=== PATIENT | female | born 1955 | race African-American/Black ===

== ENCOUNTER 2021-05-03 07:41 | Inpatient (IN) | payer MEDICARE ==
[~2021-05-03] VITALS: Ht 162.6 cm; Wt 73.5 kg
[2021-05-03] VITALS (15 sets, daily range): BP systolic 114–152; BP diastolic 30–99
[2021-05-03] MEDS ORDERED: SODIUM CHLORIDE 0.9% 1000ML 1,000 ML IV STA (07:49)
[2021-05-03] MEDS ORDERED: ONDANSETRON HCL INJ 2MG/ML 2ML 2 MG/ML VIAL IV STA (07:49)
[2021-05-03 08:02] LABS: BASOPHILS # (AUTO) 0.1 (0.0-0.1); BASOPHILS % 0.7 % (0.0-1.0); EOSINOPHILS # (AUTO) 0.4 (0.0-0.4); EOSINOPHILS % 5.1 % (0.0-6.0); HEMOGLOBIN 14.1 g/dL (12.0-16.0); LYMPHOCYTES # (AUTO) 5.3 (1.0-3.2); MEAN CORPUSCULAR HEMOGLOBIN 30.9 pg (28-32); MEAN CORPUSCULAR HGB CONC 32.8 g/dL (31-35); MEAN CORPUSCULAR VOLUME 94.1 fL (81-99); MONOCYTES # (AUTO) 0.4 (0.2-0.8); NEUTROPHILS # (AUTO) 2.2 (2.1-6.9); PLATELET COUNT 204 x10e3/uL (140-360); RED BLOOD COUNT 4.57 x10e6/uL (3.6-5.1); RED CELL DISTRIBUTION WIDTH 14.7 % (11.7-14.4)
[2021-05-03] MEDS ORDERED: ASPIRIN 81 MG CHEW TAB PO ONE (08:15)
[2021-05-03 08:17] LABS: INR 0.91; PROTHROMBIN TIME 12.6 seconds (11.9-14.5)
[2021-05-03 08:18] LABS: PARTIAL THROMBOPLASTIN TIME 24.2 seconds (23.8-35.5)
[2021-05-03 08:41] LABS: EOSINOPHILS % (MANUAL) 3 % (0-7); LYMPHOCYTES % (MANUAL) 71 % (19-48); MONOCYTES % (MANUAL) 6 % (3.4-9.0); NEUTROPHILS % (MANUAL) 20 % (40-74); PLATELET ESTIMATE ADEQUATE; PLATELET MORPHOLOGY COMMENT NORMAL; RBC MORPHOLOGY COMMENT NORMAL
[2021-05-03] MEDS ORDERED: DEXTROSE 50% SYRINGE 50 ML IV PRN (09:30)
[2021-05-03 09:33] LABS: ALBUMIN 3.5 g/dL (3.5-5.0); ALBUMIN/GLOBULIN RATIO 1.5 (0.8-2.0); ANION GAP 14.9 mmol/L (8-16); CALCIUM 8.5 mg/dL (8.4-10.2); CREATININE, SERUM 0.93 mg/dL (0.57-1.11); MAGNESIUM 2.2 MG/DL (1.3-2.1); POTASSIUM 4.9 mmol/L (3.5-5.1)
[2021-05-03 09:40] LABS: CREATINE KINASE MB 4.9 ng/mL (0-5.0)
[2021-05-03] MEDS: INSULIN LISPRO 100 UNIT/1 ML 3ML VIAL SQ SCH ×3 (11:30→20:54)
[2021-05-03 14:35] LABS: CREATINE KINASE MB 15.7 ng/mL (0-5.0)
[2021-05-03] MEDS: FAMOTIDINE 20 MG/2 ML VIAL IV SCH (20:54)
[2021-05-03] MEDS: ENOXAPARIN SODIUM INJ 100 MG/ML SYR SC SCH (20:54)
[2021-05-04] VITALS (18 sets, daily range): BP systolic 115–154; BP diastolic 60–98
[2021-05-04 02:39] LABS: CREATINE KINASE MB 11.3 ng/mL (0-5.0)
[2021-05-04] MEDS ORDERED: CLONIDINE HCL0.2 MG PO (03:54)
[2021-05-04] MEDS ORDERED: LOSARTAN POTASS25 MG PO (03:54)
[2021-05-04] MEDS ORDERED: NIFEDIPINE ER30 M1 PO (03:54)
[2021-05-04 05:49] LABS: BASOPHILS % 0.6 % (0.0-1.0); EOSINOPHILS # (AUTO) 0.3 (0.0-0.4); EOSINOPHILS % 4.5 % (0.0-6.0); HEMATOCRIT 39.1 % (34.2-44.1); HEMOGLOBIN 13.1 g/dL (12.0-16.0); LYMPHOCYTES # (AUTO) 3.4 (1.0-3.2); LYMPHOCYTES % 52.3 % (18.0-39.1); MEAN CORPUSCULAR HEMOGLOBIN 30.5 pg (28-32); MEAN CORPUSCULAR HGB CONC 33.5 g/dL (31-35); MEAN CORPUSCULAR VOLUME 91.1 fL (81-99); MONOCYTES # (AUTO) 0.5 (0.2-0.8); MONOCYTES % 8.3 % (4.4-11.3); NEUTROPHILS # (AUTO) 2.2 (2.1-6.9); PLATELET COUNT 189 x10e3/uL (140-360); RED BLOOD COUNT 4.29 x10e6/uL (3.6-5.1); RED CELL DISTRIBUTION WIDTH 14.6 % (11.7-14.4)
[2021-05-04] MEDS ORDERED: CLONIDINE HCL 0.2 MG TAB PO SCH (06:00)
[2021-05-04 06:13] LABS: CHOL/HDL RATIO 3.7 (3.0-3.6)
[2021-05-04 06:16] LABS: ALBUMIN 3.3 g/dL (3.5-5.0); ALBUMIN/GLOBULIN RATIO 1.4 (0.8-2.0); ANION GAP 12.7 mmol/L (8-16); CALCIUM 8.7 mg/dL (8.4-10.2); CHOL/HDL RATIO 3.7 (3.0-3.6); CREATININE, SERUM 0.83 mg/dL (0.57-1.11); POTASSIUM 3.7 mmol/L (3.5-5.1)
[2021-05-04 06:37] LABS: FREE THYROXINE INDEX 1.6274 (1.4-3.8); THYROID STIMULATING HORMONE 1.617 uIU/mL (0.350-4.940)
[2021-05-04] MEDS: INSULIN LISPRO 100 UNIT/1 ML 3ML VIAL SQ SCH ×4 (07:16→21:00)
[2021-05-04] MEDS: PANTOPRAZOLE SOD 40 MG TABEC PO SCH (08:02)
[2021-05-04] MEDS: FAMOTIDINE 20 MG/2 ML VIAL IV SCH ×2 (08:02→20:56)
[2021-05-04] MEDS: ENOXAPARIN SODIUM INJ 100 MG/ML SYR SC SCH ×2 (08:02→20:56)
[2021-05-04] MEDS: ASPIRIN 81 MG ENTERIC COATED PO SCH (08:02)
[2021-05-04 09:43] LABS: CREATINE KINASE MB 7.2 ng/mL (0-5.0)
[2021-05-04 14:48] LABS: CLARITY,URINE CLEAR (CLEAR); COLOR,URINE YELLOW (YELLOW); KETONES,URINE NEGATIVE (NEGATIVE); LEUKOCYTE ESTERASE ,URINE NEGATIVE (NEGATIVE); NITRITE,URINE NEGATIVE (NEGATIVE); PROTEIN,URINE DIPSTICK NEGATIVE (NEGATIVE); URINE UROBILINOGEN 0.2 mg/dL (0.2 - 1)
[2021-05-04 14:58] LABS: BACTERIA,URINE RARE /HPF; EPITHELIAL CELLS,URINE FEW /LPF; RBC,URINE 0-5 /HPF (0-5); WBC,URINE (MAN) 0-5 /HPF (0-5)
[2021-05-04] MEDS: ATORVASTATIN 10 MG TAB PO SCH (20:56)
[2021-05-04] MEDS ORDERED: MELATONIN 5 MG TABLET PO SCH (21:00)
[2021-05-04] MEDS: MELATONIN 5 MG TABLET PO SCH (21:05)
[2021-05-05] VITALS (8 sets, daily range): BP systolic 140–165; BP diastolic 73–84
[2021-05-05] MEDS: INSULIN LISPRO 100 UNIT/1 ML 3ML VIAL SQ SCH ×4 (07:30→21:00)
[2021-05-05] MEDS: PANTOPRAZOLE SOD 40 MG TABEC PO SCH (07:30)
[2021-05-05] MEDS: ASPIRIN 81 MG ENTERIC COATED PO SCH (09:00)
[2021-05-05] MEDS: ENOXAPARIN SODIUM INJ 100 MG/ML SYR SC SCH (09:00)
[2021-05-05] MEDS ORDERED: MIDAZOLAM HCL 2 MG/2 ML VIAL ONE (12:29)
[2021-05-05] MEDS ORDERED: FENTANYL CITRATE/PF 100MCG/2 ML INJ ONE (12:30)
[2021-05-05] MEDS ORDERED: LIDOCAINE HCL 2% LOCAL 20 ML VIAL ONE (12:30)
[2021-05-05] MEDS ORDERED: HEPARIN SOD/SOD CHLORIDE 2,000 ML ONE (12:30)
[2021-05-05] MEDS ORDERED: IOPAMIDOL 370 MG/ML 200 ML INFUS..BTL INJ ONE (12:30)
[2021-05-05] MEDS ORDERED: SODIUM CHLORIDE 0.9% 1000ML 1,000 ML ONE (12:30)
[2021-05-05] MEDS ORDERED: TICAGRELOR 90 MG TABLET ONE (13:04)
[2021-05-05] MEDS ORDERED: ASPIRIN 325 MG TAB ONE (13:04)
[2021-05-05] MEDS ORDERED: SODIUM CHLORIDE 0.9% 1000ML 1,000 ML IV SCH (13:15)
[2021-05-05] MEDS: FAMOTIDINE 20 MG TAB PO SCH (22:04)
[2021-05-05] MEDS: MELATONIN 5 MG TABLET PO SCH (22:04)
[2021-05-05] MEDS: ATORVASTATIN 10 MG TAB PO SCH (22:04)
[2021-05-06] VITALS: BP 176/77
[2021-05-06 04:00] VITALS: BP 157/79
[2021-05-06 07:28] VITALS: BP 141/71
[2021-05-06] MEDS: INSULIN LISPRO 100 UNIT/1 ML 3ML VIAL SQ SCH ×2 (07:30→11:30)
[2021-05-06 07:59] VITALS: BP 141/71
[2021-05-06] MEDS: FAMOTIDINE 20 MG TAB PO SCH (08:33)
[2021-05-06] MEDS: PANTOPRAZOLE SOD 40 MG TABEC PO SCH (08:33)
[2021-05-06] MEDS: ASPIRIN 81 MG ENTERIC COATED PO SCH (08:33)
[2021-05-06] MEDS ORDERED: CLOPIDOGREL BISULFATE 75 MG TAB PO SCH (09:00)
[2021-05-06] MEDS ORDERED: PLAVIX75 MG PO (11:03)
[2021-05-06] MEDS ORDERED: FAMOTIDINE20 MG PO (11:03)
[2021-05-06] MEDS ORDERED: ASPIRIN EC81 MG PO (11:03)
[2021-05-06] MEDS ORDERED: MELATONIN3 MG PO (11:04)
[2021-05-06 11:33] VITALS: BP 153/82
== END 2021-05-06 14:00 | disposition home or self-care (01) | DRG 247 ==
LOC: EDBD 07:41 → ER 08:00 → ERHOLD 09:29 → ICU 10:44 → MED/SURG 05-04 17:55
PROVIDERS: ADMIT Internal Medicine; ATTEND Internal Medicine
PROC: 027034Z Dilation of Coronary Artery, One Artery with Drug-eluting Intraluminal Device, Percutaneous Approach (ICD-10-PCS; principal; 2021-05-05)
PROC: 4A023N7 Measurement of Cardiac Sampling and Pressure, Left Heart, Percutaneous Approach (ICD-10-PCS; 2021-05-05)
PROC: B2111ZZ Fluoroscopy of Multiple Coronary Arteries using Low Osmolar Contrast (ICD-10-PCS; 2021-05-05)
PROC: B2151ZZ Fluoroscopy of Left Heart using Low Osmolar Contrast (ICD-10-PCS; 2021-05-05)
DX: I21.4 Non-ST elevation (NSTEMI) myocardial infarction (principal); W18.11XA Fall from or off toilet without subsequent striking against object, initial encounter; Y93.9 Activity, unspecified; Y92.002 Bathroom of unspecified non-institutional (private) residence as the place of occurrence of the external cause; E78.5 Hyperlipidemia, unspecified; E11.9 Type 2 diabetes mellitus without complications; I25.10 Atherosclerotic heart disease of native coronary artery without angina pectoris; Z20.822 Contact with and (suspected) exposure to COVID-19
CPT/HCPCS: 36415; 70450; 70551; 71045; 80053; 80061; 81001; 82550; 82553; 82948; 83036; 83090; 83735; 83880; 84436; 84443; 84479; 84484; 85025; 85610; 85730; 86039; 87086; 92928; 93005; 93306; 93454; 93880; 99152; 99153; 99284; C1725; C1760; C1769; C1874; C1894; J1650; J2001; J2250; J3010; J7030; Q9967; U0002

== ENCOUNTER 2021-05-20 12:16 | Inpatient (IN) | payer MEDICARE ==
[~2021-05-20] VITALS: Ht 162.6 cm; Wt 73.5 kg
[~2021-05-20 12:16] MED LIST: ASPIRIN EC81 MG PO; CLONIDINE HCL0.2 MG PO; FAMOTIDINE20 MG PO; LOSARTAN POTASS25 MG PO; MELATONIN3 MG PO; NIFEDIPINE ER30 M1 PO; PLAVIX75 MG PO
[2021-05-20 12:59] LABS: BASOPHILS # (AUTO) 0.1 (0.0-0.1); BASOPHILS % 0.8 % (0.0-1.0); EOSINOPHILS # (AUTO) 0.3 (0.0-0.4); HEMOGLOBIN 13.9 g/dL (12.0-16.0); LYMPHOCYTES % 34.3 % (18.0-39.1); MEAN CORPUSCULAR HEMOGLOBIN 30.5 pg (28-32); MEAN CORPUSCULAR HGB CONC 33.1 g/dL (31-35); MEAN CORPUSCULAR VOLUME 92.1 fL (81-99); MONOCYTES # (AUTO) 0.6 (0.2-0.8); MONOCYTES % 6.4 % (4.4-11.3); NEUTROPHILS # (AUTO) 4.9 (2.1-6.9); NEUTROPHILS % 55.3 % (38.7-80.0); PLATELET COUNT 277 x10e3/uL (140-360); RED BLOOD COUNT 4.56 x10e6/uL (3.6-5.1); RED CELL DISTRIBUTION WIDTH 14.2 % (11.7-14.4)
[2021-05-20 13:25] LABS: INR 0.93; PROTHROMBIN TIME 13.2 seconds (11.9-14.5)
[2021-05-20 13:26] LABS: PARTIAL THROMBOPLASTIN TIME 20.3 seconds (23.8-35.5)
[2021-05-20 13:27] LABS: ALBUMIN 3.7 g/dL (3.5-5.0); ALBUMIN/GLOBULIN RATIO 1.3 (0.8-2.0); ANION GAP 14.7 mmol/L (8-16); CALCIUM 8.4 mg/dL (8.4-10.2); CREATININE, SERUM 1.05 mg/dL (0.57-1.11); POTASSIUM 3.7 mmol/L (3.5-5.1)
[2021-05-20 13:33] LABS: CREATINE KINASE MB 3.1 ng/mL (0-5.0)
[2021-05-20] MEDS ORDERED: ONDANSETRON HCL INJ 2MG/ML 2ML 2 MG/ML VIAL IV PRN (14:15)
[2021-05-20] MEDS ORDERED: Morphine 2mg Syringe 2 MG/ML SYR IV PRN (14:15)
[2021-05-20] MEDS ORDERED: SUCRALFATE 1 GM/10 ML SUSP PO PRN (15:30)
[2021-05-20] MEDS ORDERED: DEXTROSE 50% SYRINGE 50 ML IV PRN (15:30)
[2021-05-20 15:40] VITALS: BP 129/71
[2021-05-20 15:50] VITALS: BP 129/71
[2021-05-20 15:51] VITALS: BP 129/71
[2021-05-20] MEDS ORDERED: CLOPIDOGREL BISULFATE 75 MG TAB PO ONE (16:00)
[2021-05-20 16:04] LABS: CHOL/HDL RATIO 3.1 (3.0-3.6)
[2021-05-20] MEDS: INSULIN LISPRO 100 UNIT/1 ML 3ML VIAL SQ SCH ×2 (16:30→20:21)
[2021-05-20] MEDS ORDERED: ENOXAPARIN SOD INJ 40 MG/0.4 ML SYR SC SCH (17:00)
[2021-05-20 19:25] LABS: CREATINE KINASE MB 7.7 ng/mL (0-5.0)
[2021-05-20 20:00] VITALS: BP 117/62
[2021-05-20] MEDS: LOSARTAN POTASSIUM 25 MG TAB PO SCH (20:33)
[2021-05-20] MEDS ORDERED: ACETAMINOPHEN 325 MG TAB PO PRN (21:00)
[2021-05-20] MEDS ORDERED: MELATONIN 3 MG TAB PO PRN (21:00)
[2021-05-20] MEDS ORDERED: CRESTOR 10MG PO SCH (21:00)
[2021-05-20] MEDS ORDERED: ENOXAPARIN 30 MG/0.3 ML SYR SC ONE (22:00)
[2021-05-21] VITALS (9 sets, daily range): BP systolic 120–131; BP diastolic 62–79
[2021-05-21 05:35] LABS: BASOPHILS # (AUTO) 0.1 (0.0-0.1); BASOPHILS % 0.9 % (0.0-1.0); EOSINOPHILS # (AUTO) 0.2 (0.0-0.4); EOSINOPHILS % 2.6 % (0.0-6.0); HEMATOCRIT 39.9 % (34.2-44.1); HEMOGLOBIN 13.4 g/dL (12.0-16.0); LYMPHOCYTES # (AUTO) 3.3 (1.0-3.2); LYMPHOCYTES % 47.7 % (18.0-39.1); MEAN CORPUSCULAR HEMOGLOBIN 31.1 pg (28-32); MEAN CORPUSCULAR HGB CONC 33.6 g/dL (31-35); MEAN CORPUSCULAR VOLUME 92.6 fL (81-99); MONOCYTES # (AUTO) 0.6 (0.2-0.8); MONOCYTES % 8.8 % (4.4-11.3); NEUTROPHILS # (AUTO) 2.8 (2.1-6.9); NEUTROPHILS % 39.9 % (38.7-80.0); PLATELET COUNT 221 x10e3/uL (140-360); RED BLOOD COUNT 4.31 x10e6/uL (3.6-5.1); RED CELL DISTRIBUTION WIDTH 14.2 % (11.7-14.4)
[2021-05-21 06:04] LABS: CREATINE KINASE MB 4.9 ng/mL (0-5.0)
[2021-05-21 06:09] LABS: ALBUMIN 3.3 g/dL (3.5-5.0); ALBUMIN/GLOBULIN RATIO 1.3 (0.8-2.0); ANION GAP 16.5 mmol/L (8-16); CALCIUM 8.5 mg/dL (8.4-10.2); CREATININE, SERUM 0.74 mg/dL (0.57-1.11); POTASSIUM 3.5 mmol/L (3.5-5.1)
[2021-05-21] MEDS ORDERED: INFLUENZA VIRUS VAC SPLIT INJ 0.5 ML SYR IM SCH (06:17)
[2021-05-21] MEDS: INSULIN LISPRO 100 UNIT/1 ML 3ML VIAL SQ SCH ×4 (07:30→20:59)
[2021-05-21] MEDS: CLOPIDOGREL BISULFATE 75 MG TAB PO SCH (08:36)
[2021-05-21] MEDS: ASPIRIN 81 MG ENTERIC COATED PO SCH (08:36)
[2021-05-21] MEDS: PANTOPRAZOLE SOD 40 MG TABEC PO SCH (08:36)
[2021-05-21] MEDS: NIFEDIPINE CR 30 MG TAB PO SCH (08:36)
[2021-05-21] MEDS: ENOXAPARIN INJ 80 MG/0.8 ML SYR SC SCH ×2 (08:36→21:31)
[2021-05-21] MEDS ORDERED: ASPIRIN 81 MG ENTERIC COATED PO SCH (09:00)
[2021-05-21 14:05] LABS: CREATINE KINASE MB 3.7 ng/mL (0-5.0)
[2021-05-21] MEDS ORDERED: CRESTOR 10MG PO SCH (21:00)
[2021-05-21] MEDS ORDERED: DIPHENHYDRAMINE HCL 25 MG CAP PO PRN (21:15)
[2021-05-21] MEDS: LOSARTAN POTASSIUM 25 MG TAB PO SCH (21:20)
[2021-05-22] VITALS (15 sets, daily range): BP systolic 107–131; BP diastolic 57–83
[2021-05-22] MEDS: INSULIN LISPRO 100 UNIT/1 ML 3ML VIAL SQ SCH ×3 (07:30→16:30)
[2021-05-22] MEDS: PANTOPRAZOLE SOD 40 MG TABEC PO SCH (08:50)
[2021-05-22] MEDS: ENOXAPARIN INJ 80 MG/0.8 ML SYR SC SCH (09:00)
[2021-05-22] MEDS: NIFEDIPINE CR 30 MG TAB PO SCH (09:01)
[2021-05-22] MEDS ORDERED: SUCRALFATE1 G/10 ML PO (11:05)
[2021-05-22] MEDS ORDERED: PROTONIX40 MG/ML PO (11:05)
[2021-05-22] MEDS ORDERED: Rosuvastatin Calcium PO (11:05)
[2021-05-22] MEDS ORDERED: ONDANSETRON HCL 4 MG ORAL DISINTEGRATING TAB PO PRN (11:30)
[2021-05-22] MEDS ORDERED: FENTANYL CITRATE/PF 100MCG/2 ML INJ ONE (12:14)
[2021-05-22] MEDS ORDERED: MIDAZOLAM HCL 2 MG/2 ML VIAL ONE (12:14)
[2021-05-22] MEDS ORDERED: LIDOCAINE HCL 2% LOCAL 20 ML VIAL ONE (12:15)
[2021-05-22] MEDS ORDERED: SODIUM CHLORIDE 0.9% 1000ML 1,000 ML ONE (12:16)
[2021-05-22] MEDS ORDERED: IOPAMIDOL 370 MG/ML 200 ML INFUS..BTL INJ ONE (12:16)
[2021-05-22] MEDS ORDERED: HEPARIN SOD/SOD CHLORIDE 2,000 ML ONE (12:16)
[2021-05-22] MEDS: CLOPIDOGREL BISULFATE 75 MG TAB PO SCH (15:29)
[2021-05-22] MEDS: ASPIRIN 81 MG ENTERIC COATED PO SCH (15:29)
[2021-05-22] MEDS ORDERED: MAGNESIUM HYDROXIDE 30 ML UDC PO ONE (15:45)
== END 2021-05-22 18:58 | disposition home or self-care (01) | DRG 287 ==
LOC: ER 12:25 → ERHOLD 14:25 → MED/SURG 15:12
PROVIDERS: ADMIT Internal Medicine; ATTEND Internal Medicine
PROC: 4A023N7 Measurement of Cardiac Sampling and Pressure, Left Heart, Percutaneous Approach (ICD-10-PCS; principal; 2021-05-22)
PROC: B2111ZZ Fluoroscopy of Multiple Coronary Arteries using Low Osmolar Contrast (ICD-10-PCS; 2021-05-22)
PROC: B2151ZZ Fluoroscopy of Left Heart using Low Osmolar Contrast (ICD-10-PCS; 2021-05-22)
DX: R00.1 Bradycardia, unspecified (principal); I25.10 Atherosclerotic heart disease of native coronary artery without angina pectoris; Z95.5 Presence of coronary angioplasty implant and graft; I10 Essential (primary) hypertension; E11.9 Type 2 diabetes mellitus without complications; Z79.82 Long term (current) use of aspirin; I25.2 Old myocardial infarction; Z86.73 Personal history of transient ischemic attack (TIA), and cerebral infarction without residual deficits; K22.89 Other specified disease of esophagus; Z79.84 Long term (current) use of oral hypoglycemic drugs; Z20.822 Contact with and (suspected) exposure to COVID-19
CPT/HCPCS: 36415; 71045; 74246; 80053; 80061; 82550; 82553; 82948; 83036; 83735; 84484; 85025; 85610; 85730; 93005; 93458; 96372; 99152; 99284; C1887; J1650; J2001; J2250; J3010; J7030; Q9967; U0002